=== PATIENT | female | born 1995 | race Caucasian/White ===

== ENCOUNTER 2016-12-03 21:42 | Emergency (ER) | payer OTHER ==
--- NOTE | 2016-12-04 00:05 | ED NURSING NOTES ---
Clinical Report - Nurses [facility] [address] [place] [address] 12/03/2016 21:44 Patient: FELICITA DUPONT TRIAGE Triage time 2159. Acuity: LEVEL 3. Chief Complaint: FEVER, COUGH, SORE THROAT and BODY ACHES and SINUS DRAINAGE and SINUS CONGESTION. --22:04 Garland Mathis R.N. 21:59 12/03/16. BP: 133/80. HR: 100. RR: 18. O2 saturation: 100%. Temp: 100.2 F. Pain level now 0/10. --22: Garland Mathis R.N. Weight: 63.5 kg stated. Height/Length: 64 inches Per Patient. BMI: 24. --22:03 Garland Mathis R.N. Medications None. --22: Garland Mathis R.N. Allergies Unknown. --22: Garland Mathis R.N. History Arrived by private vehicle. Historian: patient and family. Accompanied by family. Onset. (about 1 weeks). She has had chest congestion, sinus pain and vomiting. 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 PAST MEDICAL HX: Immunizations: up-to-date. Last normal menstrual period- 2 weeks ago. SOCIAL HX: Never smoker. No alcohol use or drug use. FALL RISK ASSESSMENT: Fall risk assessment completed. No fall risk identified. NUTRITIONAL RISK ASSESSMENT: The nutritional risk assessment revealed no deficiencies. FUNCTIONAL ASSESSMENT: Functional assessment: no impairments noted. LEARNING NEEDS ASSESSMENT: The learning needs assessment revealed no barriers. SKIN INTEGRITY ASSESSMENT: Skin integrity risk assessment completed. No skin integrity risk identified. --22:04 Garland Mathis R.N. PROBLEMS: Heart Murmur. --22:02 Garland Mathis R.N. ADDITIONAL SURGERIES: Heart surgury. --22:02 Garland Mathis R.N. Interventions ID band on patient. --22:04 Garland Mathis R.N. PHYSICAL ASSESSMENT Ambulatory to room. GENERAL / NEURO / PSYCH: Alert. Oriented X 4. She appears ill. HEENT: Pupils equal, round and reactive to light. Mucous membranes are pink. RESPIRATORY: Respirations not labored. Chest nontender. CVS: Normal sinus rhythm noted. Capillary refill less than 2 seconds. Pulses within normal limits. GI / : Abdomen soft and nontender. SKIN: Skin intact. Skin is warm and dry. Normal skin turgor. --22:05 Garland Mathis R.N. NURSING PROGRESS NOTES Head of bed elevated. Reassurance given. Patient identifiers checked. Call light placed in reach. Bed placed in lowest position. Brakes of bed on. --22:05 Garland Mathis R.N. 22:53 12/03/2016 Ibuprofen PO 800 mg given. Allergies verified and confirmed 5 rights. --22:53 Garland Mathis R.N. 22:53 12/03/2016 Acetaminophen (APAP) PO 650 mg given. Allergies verified and confirmed 5 rights. --22:53 Garland Mathis R.N. DISPOSITION / DISCHARGE Departure time: 0025. Condition at departure: improved. No learning barriers present. Discharge instructions provided and reviewed with the patient and parent. Reviewed warnings. Reviewed medication(s). Treatments reviewed. Reviewed referrals. Patient and parent verbalized understanding. Written instructions provided in Amharic. The patient was discharged by the physician. She was discharged home and accompanied by parent. She left the Emergency Department ambulatory and via private vehicle. Parent driving. --00:26 Garland Mathis R.N. 00:25 12/04/16. BP: 138/78. HR: 77. RR: 16. O2 saturation: 100%. Temp: 99 F. Pain level now 0/10. --00:26 Garland Mathis R.N. Locked/Released at 12/04/2016 0:26 by Garland Mathis R.N.
--- NOTE | 2016-12-04 00:05 | ED NURSING NOTES ---
Clinical Report - Nurses [facility] [address] [place] [place] [address] 12/03/2016 21:44 Patient: FELICITA DUPONT TRIAGE Triage time 2159. Acuity: LEVEL 3. Chief Complaint: FEVER, COUGH, SORE THROAT and BODY ACHES and SINUS DRAINAGE and SINUS CONGESTION. --22:04 Garland Mathis R.N. 21:59 12/03/16. BP: 133/80. HR: 100. RR: 18. O2 saturation: 100%. Temp: 100.2 F. Pain level now 0/10. --22: Garland Mathis R.N. Weight: 63.5 kg stated. Height/Length: 64 inches Per Patient. BMI: 24. --22:03 Garland Mathis R.N. Medications None. --22: Garland Mathis R.N. Allergies Unknown. --22: Garland Mathis R.N. History Arrived by private vehicle. Historian: patient and family. Accompanied by family. Onset. (about 1 weeks). She has had chest congestion, sinus pain and vomiting. 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 PAST MEDICAL HX: Immunizations: up-to-date. Last normal menstrual period- 2 weeks ago. SOCIAL HX: Never smoker. No alcohol use or drug use. FALL RISK ASSESSMENT: Fall risk assessment completed. No fall risk identified. NUTRITIONAL RISK ASSESSMENT: The nutritional risk assessment revealed no deficiencies. FUNCTIONAL ASSESSMENT: Functional assessment: no impairments noted. LEARNING NEEDS ASSESSMENT: The learning needs assessment revealed no barriers. SKIN INTEGRITY ASSESSMENT: Skin integrity risk assessment completed. No skin integrity risk identified. --22:04 Garland Mathis R.N. PROBLEMS: Heart Murmur. --22:02 Garland Mathis R.N. ADDITIONAL SURGERIES: Heart surgury. --22:02 Garland Mathis R.N. Interventions ID band on patient. --22:04 Garland Mathis R.N. PHYSICAL ASSESSMENT Ambulatory to room. GENERAL / NEURO / PSYCH: Alert. Oriented X 4. She appears ill. HEENT: Pupils equal, round and reactive to light. Mucous membranes are pink. RESPIRATORY: Respirations not labored. Chest nontender. CVS: Normal sinus rhythm noted. Capillary refill less than 2 seconds. Pulses within normal limits. GI / : Abdomen soft and nontender. SKIN: Skin intact. Skin is warm and dry. Normal skin turgor. --22:05 Garland Mathis R.N. NURSING PROGRESS NOTES Head of bed elevated. Reassurance given. Patient identifiers checked. Call light placed in reach. Bed placed in lowest position. Brakes of bed on. --22:05 Garland Mathis R.N. 22:53 12/03/2016 Ibuprofen PO 800 mg given. Allergies verified and confirmed 5 rights. --22:53 Garland Mathis R.N. 22:53 12/03/2016 Acetaminophen (APAP) PO 650 mg given. Allergies verified and confirmed 5 rights. --22:53 Garland Mathis R.N. DISPOSITION / DISCHARGE Departure time: 0025. Condition at departure: improved. No learning barriers present. Discharge instructions provided and reviewed with the patient and parent. Reviewed warnings. Reviewed medication(s). Treatments reviewed. Reviewed referrals. Patient and parent verbalized understanding. Written instructions provided in Spanish. The patient was discharged by the physician. She was discharged home and accompanied by parent. She left the Emergency Department ambulatory and via private vehicle. Parent driving. --00:26 Garland Mathis R.N. 00:25 12/04/16. BP: 138/78. HR: 77. RR: 16. O2 saturation: 100%. Temp: 99 F. Pain level now 0/10. --00:26 Garland Mathis R.N. Locked/Released at 12/04/2016 0:26 by Garland Mathis R.N.
--- NOTE | 2016-12-04 00:05 | ED CLINICAL REPORT ---
Clinical Report - Physicians/Mid Levels [facility] [address] [place] [address] 12/03/2016 21:44 Patient: FELICITA DUPONT Time Seen: 22:03. Arrived- By private vehicle. Historian- patient. HISTORY OF PRESENT ILLNESS Chief Complaint: COUGH, SORE THROAT and CHILLS. RUNNY NOSE. This started about 1 week ago and is still present. The illness is described as moderate. The patient has had a cough, a sore throat, nasal congestion, chills and a nasal discharge. No sputum production, difficulty breathing, chest discomfort or pain or fever. No muscle aches, hoarseness, sinus pressure, sinus drainage or ear pain. Additional history - The patient has had contact with a sick individual. Similar symptoms previously: None. Recent medical care: Not recently seen/assessed. REVIEW OF SYSTEMS No headache, eye discomfort, vomiting, diarrhea or abdominal pain. No hay fever, pedal edema, calf pain, difficulty with urination or skin rash. No enlarged lymph nodes or joint pain. The patient has had nausea. Denies current . All systems otherwise negative, except as recorded above. PAST HISTORY Problems: Heart Murmur. Additional Surgeries: Heart surgury. Medications: None. Allergies: Unknown. SOCIAL HISTORY Never smoker. No alcohol use or drug use. ADDITIONAL NOTES The nursing notes have been reviewed. PHYSICAL EXAM Vital Signs: 12/03/2016 21:59 BP: 133/80. HR: 100. RR: 18. O2 saturation: 100%. Temp: 100.2 F. Have been reviewed. Appearance: Alert. No acute distress. Eyes: Pupils equal, round and reactive to light. Eyes normal inspection. ENT: Nose normal. Neck: Normal inspection. Neck supple. CVS: Normal heart rate and rhythm. Heart sounds normal. Pulses normal. Respiratory: No respiratory distress. Breath sounds normal. Abdomen: Soft and nontender. No organomegaly. Back: Normal inspection. Skin: Skin warm and dry. Normal skin color. No rash. Normal skin turgor. Extremities: Extremities exhibit normal ROM. No lower extremity edema. Neuro: Oriented X 3. No motor deficit. No sensory deficit. LABS, X-RAYS, AND EKG Chest X-ray: No acute disease. Normal lung markings present. Normal heart size. Mediastinum normal. Great vessels normal. Soft tissues normal. No infiltrate. No fracture. No bony lesion present. Views: PA and lateral. Technique: good. The X-rays were independently viewed by me and interpreted contemporaneously by me. Prior films were not available for comparison. Laboratory Tests: Rapid Influenza Screen: (RAMSES: 12/03/2016 22:07) ( [id number] 12/03/2016 23:02) Final results SPECIMEN DESCRIPTION: SWAB Test Result Flag Units (Reference) RAPID INFLUENZA SCREEN CALLED TO: NA -- DATE: 12/03/16 INFLUENZA A: NEGATIVE SCREEN FOR INFLUENZA A INFLUENZA B: NEGATIVE SCREEN FOR INFLUENZA B . Pulse Oximetry: 12/03/2016 21:59 O2 saturation: 100%. (FIO2 - room air). Interpretation: normal. PROGRESS AND PROCEDURES Course of Care: PT was given ibuprofen and Tylenol for symptomatic relief, and worked up with a CXR and influenza test, both of which were negative. Patient counseled in person regarding the patient's stable condition, test results, diagnosis and need for follow-up. Concerns were addressed. Old medical records reviewed. Disposition: Discharged. Condition: stable. CLINICAL IMPRESSION Acute viral rhinitis and pharyngitis. No airway obstruction. INSTRUCTIONS Drink plenty of fluids. (The influenza test and x-ray series were both negative. You may take ibuprofen and Tylenol for the muscle aches and fevers.). Warnings: GENERAL WARNINGS: Return or contact your physician immediately if your condition worsens or changes unexpectedly, if not improving as expected, or if other problems arise. Follow-up: Follow up with your doctor in three days if not better. Understanding of the discharge instructions verbalized by patient and family. (Electronically signed by Carla Chen MD 12/05/2016 0:38)
--- NOTE | 2016-12-04 00:06 | ED ORDER SUMMARY ---
..... Patient: FELICITA DUPONT OrderSheet [facility] VisitID: [id number] [address] [place] [address] 21y, F Registration Date/Time: 12/03/2016 ORDER SHEET Weight: 63.5 kg (stated) Allergies: Unknown GENERAL ORDERS: Chest 2V Urgent (22:33 12/03/2016 Celeste MARIANO) (Ack 22:37 [facility] Managing Member) (22:38 Cassius) Rapid Influenza Screen (Nasal Pharyngeal) (swab) Urgent (22:34 12/03/2016 Celeste MARIANO) (Ack 22:37 [facility] Managing Member) (22:49 Eligio R.N.) MEDICATION ORDERS: Acetaminophen PO 650 mg (NOW) (22:33 12/03/2016 Celeste MARIANO) (22:53 Eligio R.N.) Ibuprofen PO 800 mg (NOW) (22:33 12/03/2016 Celeste MARIANO) (22:53 Eligio R.N.) IV FLUIDS: ORDER SHEET NOTES: [Electronically signed by Garland Mathis R.N. (00:26 12/04/2016)] [Electronically signed by Carla Chen MD (00:38 12/05/2016)] [Electronically locked/signed by Garland Mathis R.N. (00:12/04/2016)]
--- NOTE | 2016-12-04 00:06 | ED ORDER SUMMARY ---
..... Patient: FELICITA DUPONT OrderSheet [facility] VisitID: [id number] [address] [place] [address] 21y, F Registration Date/Time: 12/03/2016 ORDER SHEET Weight: 63.5 kg (stated) Allergies: Unknown GENERAL ORDERS: Chest 2V Urgent (22:33 12/03/2016 Celeste MARIANO) (Ack 22:37 [facility] Business Initiatives Manager) (22:38 Cassius) Rapid Influenza Screen (Nasal Pharyngeal) (swab) Urgent (22:34 12/03/2016 Celeste MARIANO) (Ack 22:37 [facility] Business Initiatives Manager) (22:49 Eligio R.N.) MEDICATION ORDERS: Acetaminophen PO 650 mg (NOW) (22:33 12/03/2016 Celeste MARIANO) (22:53 Eligio R.N.) Ibuprofen PO 800 mg (NOW) (22:33 12/03/2016 Celeste MARIANO) (22:53 Eligio R.N.) IV FLUIDS: ORDER SHEET NOTES: [Electronically signed by Garland Mathis R.N. (00:26 12/04/2016)] [Electronically signed by Carla Chen MD (00:38 12/05/2016)] [Electronically locked/signed by Garland Mathis R.N. (00:12/04/2016)]
--- NOTE | 2016-12-04 00:07 | DIAGNOSTIC IMAGING REPORT ---
PROCEDURE: XR CHEST 2 VIEW INDICATION: FEVER TECHNIQUE: PA and lateral view. COMPARISON: None. FINDINGS: Lungs are clear. Mild cardiomegaly with cardiac postsurgical changes. Mediastinum and pulmonary vascularity are normal. Bony thorax is unremarkable. IMPRESSION: 1. Mild cardiomegaly with cardiac postsurgical changes.
--- NOTE | 2016-12-05 00:39 | ED MED RECONCILIATION SUMMARY ---
Patient: FELICITA DUPONT Medication Reconciliation Report [facility] VisitID: [id number] [address] [place] [address] 21y, F Registration Date/Time: 12/03/2016 Weight: 63.5 kg Height/Length: 64 in. BMI: 24.0 ALLERGIES: Unknown The patient's Home Medications are listed below: NONE. The source(s) of the original Home Medication information: Not obtained. The following Medications were given to the patient in the Emergency Department: Ibuprofen [PO] PO 800 mg, administered: 12/03/2016 10:53:00 PM Acetaminophen [PO] PO 650 mg, administered: 12/03/2016 10:53:00 PM The following Medications were prescribed to the patient: None.
--- NOTE | 2016-12-05 00:39 | ED MAR SUMMARY ---
..... Medication Administration Record [facility] [address] [place] [address] Patient: FELICITA DUPONT Visit ID: [id number] 21y, F Weight: 63.5 kg Height/Length: 64 in BMI: 24 ALLERGIES: Unknown Given 22:53 12/03/2016 Garland Mathis R.N. Medication Administered: ACETAMINOPHEN [PO] (APAP), Dose: 650 mg PO. Medication Ordered: Acetaminophen PO 650 mg (NOW). Given 22:53 12/03/2016 Garland Mathis R.N. Medication Administered: IBUPROFEN [PO], Dose: 800 mg PO. Medication Ordered: Ibuprofen PO 800 mg (NOW).
--- NOTE | 2016-12-05 00:39 | ED MED RECONCILIATION SUMMARY ---
Patient: FELICITA DUPONT Medication Reconciliation Report [facility] VisitID: [id number] [address] [place] [address] 21y, F Registration Date/Time: 12/03/2016 Weight: 63.5 kg Height/Length: 64 in. BMI: 24.0 ALLERGIES: Unknown The patient's Home Medications are listed below: NONE. The source(s) of the original Home Medication information: Not obtained. The following Medications were given to the patient in the Emergency Department: Ibuprofen [PO] PO 800 mg, administered: 12/03/2016 10:53:00 PM Acetaminophen [PO] PO 650 mg, administered: 12/03/2016 10:53:00 PM The following Medications were prescribed to the patient: None.
--- NOTE | 2016-12-05 00:39 | ED DISCHARGE INSTRUCTIONS ---
Patient: FELICITA DUPONT General Instructions [facility] VisitID: [id number] [place] [address] 21y, F Registration Date/Time: 12/03/2016 Acute viral rhinitis and pharyngitis. No airway obstruction. INSTRUCTIONS Drink plenty of fluids. (The influenza test and x-ray series were both negative. You may take ibuprofen and Tylenol for the muscle aches and fevers.). Warnings: GENERAL WARNINGS: Return or contact your physician immediately if your condition worsens or changes unexpectedly, if not improving as expected, or if other problems arise. Follow-up: Follow up with your doctor in three days if not better. Understanding of the discharge instructions verbalized by patient and family. ADDITIONAL INFORMATION Viral Respiratory Illness [Adult] You have an Upper Respiratory Illness (URI) caused by a virus. This illness is contagious during the first few days. It is spread through the air by coughing and sneezing or by direct contact (touching the sick person and then touching your own eyes, nose or mouth). Most viral illnesses go away within 7-10 days with rest and simple home remedies. Sometimes, the illness may last for several weeks. Antibiotics will not kill a virus and are generally not prescribed for this condition. Home Care: 1) If symptoms are severe, rest at home for the first 2-3 days. When you resume activity, don't let yourself get too tired. 2) Avoid being exposed to cigarette smoke (yours or others). 3) Tylenol (acetaminophen) or ibuprofen (Advil, Motrin) will help fever, muscle aching and headache. (Persons under 18 with fever should not take aspirin since this may cause liver damage.) 4) Your appetite may be poor, so a light diet is fine. Avoid dehydration by drinking 6-8 glasses of fluids per day (water, soft drinks, juices, tea, soup). Extra fluids will help loosen secretions in the nose and lungs. 5) Duej-cvf-ejxrokt cold medicines will not shorten the length of time youre sick, but they may be helpful for the following symptoms: cough (Robitussin DM); sore throat (Chloraseptic lozenges or spray); nasal and sinus congestion (Actifed, Sudafed, Chlortrimeton). Follow Up with your doctor or as advised if you dont improve over the next week. Get Prompt Medical Attention if any of the following occur: -- Cough with lots of colored sputum (mucus) or blood in your sputum -- Chest pain, shortness of breath, wheezing or have trouble breathing -- Severe headache; face, neck or ear pain -- Fever over 100.4 F (38.0 C) for more than three days -- You cant swallow due to throat pain You have been given the following additional information: Uri, Viral, No Abx (Adult) (Electronically signed by Carla Chen MD 12/05/2016 0:38)
--- NOTE | 2016-12-05 00:39 | ED MAR SUMMARY ---
..... Medication Administration Record [facility] [address] [place] [address] Patient: FELICITA DUPONT Visit ID: [id number] 21y, F Weight: 63.5 kg Height/Length: 64 in BMI: 24 ALLERGIES: Unknown Given 22:53 12/03/2016 Garland Mathis R.N. Medication Administered: ACETAMINOPHEN [PO] (APAP), Dose: 650 mg PO. Medication Ordered: Acetaminophen PO 650 mg (NOW). Given 22:53 12/03/2016 Garland Mathis R.N. Medication Administered: IBUPROFEN [PO], Dose: 800 mg PO. Medication Ordered: Ibuprofen PO 800 mg (NOW).
== END 2016-12-04 00:24 | disposition home or self-care (01) ==
LOC: ED SRH 21:42
DX: J02.9 Acute pharyngitis, unspecified (principal)
CPT/HCPCS: 91400